=== PATIENT | male | born 1990 | race Caucasian/White ===

== ENCOUNTER 2023-08-18 10:50 | Inpatient (IN) | payer OTHER ==
[2023-08-18 11:07] VITALS: BMI 29.9
[2023-08-18] MEDS ORDERED: SODIUM CHLORIDE 1,000 ML IV ONE (11:57)
[2023-08-18] MEDS ORDERED: ACETAMINOPHEN 1000 MG/100 ML BAG IVPB ONE (11:57)
[2023-08-18] MEDS ORDERED: FAMOTIDINE 20 MG/50 ML IVPB 20 MG in PREMIX 50 IVPB ONE (11:57)
[2023-08-18] MEDS ORDERED: ACETAMINOPHEN INJECTION 100 ML IVPB ONE (12:07)
[2023-08-18] MEDS ORDERED: FAMOTIDINE 20 MG/50 ML IVPB 20 MG/50 ML MG IVPB ONE (12:07)
[2023-08-18 12:35] LABS: BASO % 0.3 % (0-2.0); EOS % 0.7 % (0-4.5); HEMATOCRIT 39.9 % (35.4-49); HEMOGLOBIN 13.4 GM/dL (11.7-16.9); LYMPH % 14.3 % (8-40); MCH 27.8 pg (25.7-33.7); MCHC 33.7 g/dl (32.0-35.9); MEAN CELL VOLUME 82.5 fl (80-96); MEAN PLT VOLUME 7.6 fl (7.5-11.1); MONO % 7.8 % (3.8-10.2); NEUT % 76.9 % (42.8-82.8); PLATELET COUNT 318 10^3/uL (134-434); RBC 4.84 M/mm3 (4.00-5.60); RDW 13.7 % (11.9-15.9); WHITE BLOOD COUNT 8.3 K/mm3 (4.0-10.0)
[2023-08-18 12:51] LABS: POTASSIUM 3.8 mmol/L (3.5-5.1)
[2023-08-18 12:54] LABS: ALBUMIN 3.2 g/dl (3.4-5.0); BLOOD UREA NITROGEN 14.1 mg/dL (7-18); CALCIUM 8.9 mg/dL (8.5-10.1)
[2023-08-18 12:57] LABS: CREATININE 0.7 mg/dL (0.55-1.3)
[2023-08-18 12:59] LABS: TOT PROT 7.6 g/dl (6.4-8.2)
[2023-08-18 13:00] LABS: BILIRUBIN,TOTAL 0.8 mg/dL (0.2-1)
[2023-08-18 13:53] LABS: EPI CELLS 5 /uL (0-25.1); HYALINE CASTS 1 /uL (0-3.1); URINE APPEARANCE CLEAR; URINE BACTERIA 4 /uL (0-1359); URINE BILIRUBIN NEGATIVE (NEGATIVE); URINE COLOR DK YELLOW; URINE GLUCOSE (UA) NEGATIVE (NEGATIVE); URINE KETONE TRACE (NEGATIVE); URINE LEUK ESTERASE TRACE (NEGATIVE); URINE NITRITE NEGATIVE (NEGATIVE); URINE PROTEIN TRACE (NEGATIVE); URINE RBC 23 /uL (0-23.9); URINE UROBILINOGEN 0.2 mg/dL (0.2-1.0); URINE WBC 26 /uL (0-25.8)
[2023-08-18] MEDS ORDERED: PIPERACILLIN/TAZOB 4.5 GM 4.5 GM in DEXTROSE 5%-WATER 100 ML IVPB ONE (15:42)
[2023-08-18] MEDS ORDERED: PIPERACILLIN/TAZOB 4.5 GM 4.5 GM/100 ML BAG IVPB ONE (16:00)
[2023-08-18] MEDS ORDERED: morphine CARPU-JECT 4 MG/1 ML DISP.SYRIN IVPUSH ONE (16:03)
[2023-08-18 16:29] LABS: INR 1.45 (0.83-1.09); PROTHROMBIN TIME (PATIENT) 16.8 SEC (9.7-13.0)
[2023-08-18] MEDS ORDERED: morphine SULFATE 4 MG/ML VIAL IVPUSH PRN (18:02)
[2023-08-18] MEDS ORDERED: ACETAMINOPHEN 1000 MG/100 ML BAG IVPB PRN (18:03)
[2023-08-18] MEDS ORDERED: ONDANSETRON 4 MG/2 ML VIAL IVPUSH PRN (18:04)
[2023-08-18] MEDS: LACTATED RINGERS SOLUTION 1,000 ML IV SCH ×2 (18:48→22:24)
[2023-08-18] MEDS ORDERED: HEPARIN NA (PORCINE) 5,000 UNITS/ML 1ML VIAL SQ SCH (22:00)
[2023-08-19] MEDS: PIPERACILLIN/TAZOB 3.375 GM 3.375 GM in DEXTROSE 5%-WATER - 50 ML IVPB SCH ×4 (01:28→22:32)
[2023-08-19] MEDS ORDERED: ACETAMINOPHEN 1000 MG/100 ML BAG IVPB PRN (09:35)
[2023-08-19] MEDS ORDERED: LACTATED RINGERS SOLUTION 1000 ML INFUS.BAG IV ONE (09:45)
[2023-08-19] MEDS: LACTATED RINGERS SOLUTION 1,000 ML IV SCH ×2 (10:04→18:07)
[2023-08-19 11:15] LABS: BASO % 0.4 % (0-2.0); HEMATOCRIT 39.1 % (35.4-49); HEMOGLOBIN 12.8 GM/dL (11.7-16.9); LYMPH % 18.5 % (8-40); MCHC 32.9 g/dl (32.0-35.9); MEAN CELL VOLUME 82.3 fl (80-96); MEAN PLT VOLUME 7.7 fl (7.5-11.1); MONO % 7.4 % (3.8-10.2); NEUT % 71.7 % (42.8-82.8); PLATELET COUNT 273 10^3/uL (134-434); RBC 4.75 M/mm3 (4.00-5.60); RDW 13.8 % (11.9-15.9); WHITE BLOOD COUNT 7.6 K/mm3 (4.0-10.0)
[2023-08-19 11:17] LABS: POTASSIUM 4.2 mmol/L (3.5-5.1)
[2023-08-19 11:25] LABS: BLOOD UREA NITROGEN 6.7 mg/dL (7-18)
[2023-08-19 11:27] LABS: CALCIUM 8.1 mg/dL (8.5-10.1)
[2023-08-19 11:28] LABS: ALBUMIN 2.6 g/dl (3.4-5.0); MAGNESIUM 2.4 mg/dL (1.8-2.4); PHOSPHOROUS 4.2 mg/dL (2.5-4.9)
[2023-08-19 11:29] LABS: CREATININE 0.6 mg/dL (0.55-1.3)
[2023-08-19 11:30] LABS: BILIRUBIN,TOTAL 0.5 mg/dL (0.2-1); TOT PROT 6.3 g/dl (6.4-8.2)
[2023-08-20] MEDS: PIPERACILLIN/TAZOB 3.375 GM 3.375 GM in DEXTROSE 5%-WATER - 50 ML IVPB SCH ×2 (02:15→09:17)
[2023-08-20 09:27] LABS: INR 1.37 (0.83-1.09); PROTHROMBIN TIME (PATIENT) 15.8 SEC (9.7-13.0)
[2023-08-20] MEDS: morphine SULFATE 4 MG/ML VIAL IVPUSH PRN ×2 (09:38→13:13)
[2023-08-20 09:45] LABS: HEMOGLOBIN 12.8 GM/dL (11.7-16.9); MCH 27.7 pg (25.7-33.7); MEAN CELL VOLUME 83.9 fl (80-96); MEAN PLT VOLUME 7.6 fl (7.5-11.1); PLATELET COUNT 287 10^3/uL (134-434); RBC 4.64 M/mm3 (4.00-5.60); RDW 13.5 % (11.9-15.9); WHITE BLOOD COUNT 6.8 K/mm3 (4.0-10.0)
[2023-08-20 11:03] LABS: BLOOD UREA NITROGEN 6.5 mg/dL (7-18); CALCIUM 8.7 mg/dL (8.5-10.1); CREATININE 0.6 mg/dL (0.55-1.3); MAGNESIUM 2.3 mg/dL (1.8-2.4); PHOSPHOROUS 4.9 mg/dL (2.5-4.9); POTASSIUM 4.2 mmol/L (3.5-5.1)
[2023-08-20] MEDS: metroNIDAZOLE 250 MG TABLET PO SCH ×2 (14:45→21:25)
[2023-08-20] MEDS: ACETAMINOPHEN 1000 MG/100 ML BAG IVPB PRN ×2 (14:53→21:25)
[2023-08-21] MEDS: metroNIDAZOLE 250 MG TABLET PO SCH ×3 (05:40→22:00)
[2023-08-21] MEDS: ACETAMINOPHEN 1000 MG/100 ML BAG IVPB PRN (08:49)
[2023-08-21 11:55] LABS: HEMOGLOBIN 13.8 GM/dL (11.7-16.9); MCH 27.4 pg (25.7-33.7); MCHC 32.9 g/dl (32.0-35.9); MEAN CELL VOLUME 83.3 fl (80-96); MEAN PLT VOLUME 7.7 fl (7.5-11.1); PLATELET COUNT 315 10^3/uL (134-434); RBC 5.05 M/mm3 (4.00-5.60); WHITE BLOOD COUNT 12.4 K/mm3 (4.0-10.0)
[2023-08-21 13:35] LABS: BLOOD UREA NITROGEN 9.3 mg/dL (7-18); CALCIUM 7.6 mg/dL (8.5-10.1); CREATININE 0.8 mg/dL (0.55-1.3); MAGNESIUM 2.4 mg/dL (1.8-2.4); PHOSPHOROUS 3.9 mg/dL (2.5-4.9); POTASSIUM 3.7 mmol/L (3.5-5.1)
[2023-08-21] MEDS: morphine SULFATE 4 MG/ML VIAL IVPUSH PRN (15:24)
[2023-08-21] MEDS: PIPERACILLIN/TAZOB 4.5 GM 4.5 GM in DEXTROSE 5%-WATER 100 ML IVPB SCH (18:31)
[2023-08-22] MEDS: PIPERACILLIN/TAZOB 4.5 GM 4.5 GM in DEXTROSE 5%-WATER 100 ML IVPB SCH ×2 (01:18→09:29)
[2023-08-22] MEDS: metroNIDAZOLE 250 MG TABLET PO SCH ×2 (05:49→13:49)
[2023-08-22] MEDS: morphine SULFATE 4 MG/ML VIAL IVPUSH PRN (09:25)
[2023-08-22 10:25] LABS: BASO % 0.3 % (0-2.0); EOS % 1.4 % (0-4.5); HEMOGLOBIN 13.1 GM/dL (11.7-16.9); LYMPH % 11.5 % (8-40); MCH 27.8 pg (25.7-33.7); MCHC 33.6 g/dl (32.0-35.9); MEAN CELL VOLUME 82.7 fl (80-96); MEAN PLT VOLUME 7.5 fl (7.5-11.1); MONO % 4.4 % (3.8-10.2); NEUT % 82.4 % (42.8-82.8); PLATELET COUNT 291 10^3/uL (134-434); RBC 4.72 M/mm3 (4.00-5.60); RDW 14.2 % (11.9-15.9); WHITE BLOOD COUNT 7.9 K/mm3 (4.0-10.0)
[2023-08-22 12:37] LABS: BLOOD UREA NITROGEN 12.2 mg/dL (7-18); CALCIUM 8.6 mg/dL (8.5-10.1); CREATININE 0.8 mg/dL (0.55-1.3); MAGNESIUM 2.1 mg/dL (1.8-2.4); PHOSPHOROUS 3.6 mg/dL (2.5-4.9); POTASSIUM 3.6 mmol/L (3.5-5.1)
[2023-08-22] MEDS: PIPERACILLIN/TAZOB 3.375 GM 3.375 GM in DEXTROSE 5%-WATER - 50 ML IVPB SCH (17:01)
[2023-08-23] MEDS: PIPERACILLIN/TAZOB 3.375 GM 3.375 GM in DEXTROSE 5%-WATER - 50 ML IVPB SCH ×3 (01:04→17:07)
[2023-08-23 10:08] LABS: HEMATOCRIT 40.9 % (35.4-49); HEMOGLOBIN 13.8 GM/dL (11.7-16.9); MCH 27.8 pg (25.7-33.7); MCHC 33.7 g/dl (32.0-35.9); MEAN CELL VOLUME 82.4 fl (80-96); MEAN PLT VOLUME 7.4 fl (7.5-11.1); PLATELET COUNT 319 10^3/uL (134-434); RBC 4.96 M/mm3 (4.00-5.60); RDW 13.8 % (11.9-15.9); WHITE BLOOD COUNT 5.4 K/mm3 (4.0-10.0)
[2023-08-23 10:20] LABS: POTASSIUM 3.9 mmol/L (3.5-5.1)
[2023-08-23 10:30] LABS: CALCIUM 8.7 mg/dL (8.5-10.1)
[2023-08-23 10:31] LABS: BLOOD UREA NITROGEN 11.3 mg/dL (7-18)
[2023-08-23 10:34] LABS: CREATININE 0.8 mg/dL (0.55-1.3)
[2023-08-23] MEDS ORDERED: morphine SULFATE 4 MG/ML VIAL IVPUSH PRN (14:00)
[2023-08-24] MEDS: PIPERACILLIN/TAZOB 3.375 GM 3.375 GM in DEXTROSE 5%-WATER - 50 ML IVPB SCH ×2 (03:17→10:33)
[2023-08-24 10:21] LABS: HEMATOCRIT 40.6 % (35.4-49); HEMOGLOBIN 13.7 GM/dL (11.7-16.9); MCH 28.1 pg (25.7-33.7); MCHC 33.7 g/dl (32.0-35.9); MEAN CELL VOLUME 83.2 fl (80-96); MEAN PLT VOLUME 7.4 fl (7.5-11.1); PLATELET COUNT 343 10^3/uL (134-434); RBC 4.88 M/mm3 (4.00-5.60); RDW 13.6 % (11.9-15.9); WHITE BLOOD COUNT 5.2 K/mm3 (4.0-10.0)
[2023-08-24 10:42] LABS: POTASSIUM 4.1 mmol/L (3.5-5.1)
[2023-08-24 10:47] LABS: CALCIUM 8.7 mg/dL (8.5-10.1)
[2023-08-24 10:49] LABS: BLOOD UREA NITROGEN 11.4 mg/dL (7-18)
[2023-08-24 10:52] LABS: CREATININE 0.7 mg/dL (0.55-1.3)
[2023-08-24 15:03] VITALS: BP 100/55; PULSE 64; RESP 18; TEMP 98
== END 2023-08-24 16:31 | disposition home or self-care (01) | DRG 244 ==
LOC: JER 10:50 → JERBED 16:21 → J5S 19:02
PROVIDERS: ADMIT Internal Medicine
DX: K57.20 Diverticulitis of large intestine with perforation and abscess without bleeding (principal); E66.9 Obesity, unspecified; Z68.30 Body mass index [BMI] 30.0-30.9, adult; E78.5 Hyperlipidemia, unspecified
CPT/HCPCS: 36415; 71046-TC-FY; 74177-TC; 80048; 80053; 81003; 83605; 83690; 83735; 84100; 85025; 85027; 85610; 85730; 86140; 86850; 86900; 86901; 93005; 93010; 99285-25

== ENCOUNTER 2023-08-28 00:38 | Inpatient (IN) | payer OTHER ==
[2023-08-28] MEDS ORDERED: FAMOTIDINE 20 MG/50 ML IVPB 20 MG/50 ML MG IVPB ONE (02:00)
[2023-08-28] MEDS ORDERED: ACETAMINOPHEN INJECTION 100 ML IVPB ONE ×2 (02:00→18:21)
[2023-08-28] MEDS: ACETAMINOPHEN 1000 MG/100 ML BAG IVPB ONE (02:02)
[2023-08-28 02:09] LABS: BASO % 0.4 % (0-2.0); EOS % 1.7 % (0-4.5); HEMATOCRIT 42.5 % (35.4-49); HEMOGLOBIN 14.3 GM/dL (11.7-16.9); LYMPH % 12.2 % (8-40); MCH 27.5 pg (25.7-33.7); MCHC 33.7 g/dl (32.0-35.9); MEAN CELL VOLUME 81.7 fl (80-96); MEAN PLT VOLUME 7.5 fl (7.5-11.1); MONO % 5.5 % (3.8-10.2); NEUT % 80.2 % (42.8-82.8); PLATELET COUNT 287 10^3/uL (134-434); RDW 13.9 % (11.9-15.9); WHITE BLOOD COUNT 12.3 K/mm3 (4.0-10.0)
[2023-08-28 02:23] LABS: PH,URINE 5.5 (5.0-8.0); URINE APPEARANCE CLEAR; URINE BILIRUBIN NEGATIVE (NEGATIVE); URINE COLOR YELLOW; URINE GLUCOSE (UA) NEGATIVE (NEGATIVE); URINE KETONE NEGATIVE (NEGATIVE); URINE LEUK ESTERASE NEGATIVE (NEGATIVE); URINE NITRITE NEGATIVE (NEGATIVE); URINE PROTEIN TRACE (NEGATIVE); URINE UROBILINOGEN 0.2 mg/dL (0.2-1.0)
[2023-08-28 02:27] LABS: POTASSIUM 3.6 mmol/L (3.5-5.1)
[2023-08-28 02:30] LABS: BLOOD UREA NITROGEN 14.3 mg/dL (7-18)
[2023-08-28 02:33] LABS: CREATININE 0.7 mg/dL (0.55-1.3)
[2023-08-28 02:34] LABS: BILIRUBIN,TOTAL 0.5 mg/dL (0.2-1); TOT PROT 7.8 g/dl (6.4-8.2)
[2023-08-28 02:51] LABS: ALBUMIN 3.2 g/dl (3.4-5.0)
[2023-08-28] MEDS: SODIUM CHLORIDE 1,000 ML IV STA (02:58)
[2023-08-28] MEDS: FAMOTIDINE 20 MG/50 ML IVPB 20 MG/50 ML MG IVPB ONE (02:58)
[2023-08-28] MEDS ORDERED: PIPERACILLIN/TAZOB 3.375 GM 3.375 GM/50 ML BAG IVPB ONE ×3 (03:21→18:22)
[2023-08-28] MEDS: PIPERACILLIN/TAZOB 3.375 GM 3.375 GM in DEXTROSE 5%-WATER - 50 ML IVPB ONE (03:24)
[2023-08-28 07:30] LABS: INR 1.34 (0.83-1.09); PROTHROMBIN TIME (PATIENT) 15.5 SEC (9.7-13.0)
[2023-08-28 07:39] LABS: HEMATOCRIT 38.7 % (35.4-49); HEMOGLOBIN 12.9 GM/dL (11.7-16.9); MCH 27.5 pg (25.7-33.7); MCHC 33.3 g/dl (32.0-35.9); MEAN CELL VOLUME 82.6 fl (80-96); MEAN PLT VOLUME 7.9 fl (7.5-11.1); PLATELET COUNT 254 10^3/uL (134-434); RBC 4.68 M/mm3 (4.00-5.60); RDW 13.6 % (11.9-15.9); WHITE BLOOD COUNT 11.4 K/mm3 (4.0-10.0)
[2023-08-28 07:40] LABS: POTASSIUM 3.7 mmol/L (3.5-5.1)
[2023-08-28 07:42] LABS: BLOOD UREA NITROGEN 11.1 mg/dL (7-18); CALCIUM 8.2 mg/dL (8.5-10.1)
[2023-08-28 07:43] LABS: MAGNESIUM 2.1 mg/dL (1.8-2.4)
[2023-08-28 07:45] LABS: CREATININE 0.6 mg/dL (0.55-1.3)
[2023-08-28 07:47] LABS: BILIRUBIN,TOTAL 0.6 mg/dL (0.2-1)
[2023-08-28] MEDS: LACTATED RINGERS SOLUTION 1,000 ML/1,000 ML INFUS.BAG IV SCH (08:18)
[2023-08-28] MEDS: PIPERACILLIN/TAZOB 3.375 GM 3.375 GM in DEXTROSE 5%-WATER - 50 ML IVPB SCH ×2 (09:00→18:35)
[2023-08-28] MEDS ORDERED: PIPERACILLIN/TAZOB 3.375 GM 3.375 GM in DEXTROSE 5%-WATER - 50 ML IVPB SCH (10:00)
[2023-08-28] MEDS: ACETAMINOPHEN 1000 MG/100 ML BAG IVPB PRN (18:36)
[2023-08-29] MEDS ORDERED: ACETAMINOPHEN INJECTION 100 ML IVPB ONE (06:53)
[2023-08-29] MEDS ORDERED: KETOROLAC TROMETHAMINE 30 MG/1 ML VIAL ONE (06:57)
[2023-08-29] MEDS ORDERED: PIPERACILLIN/TAZOB 3.375 GM 3.375 GM/50 ML BAG IVPB ONE ×2 (09:21→17:04)
[2023-08-30] MEDS ORDERED: PIPERACILLIN/TAZOB 3.375 GM 3.375 GM/50 ML BAG IVPB ONE (01:42)
[2023-08-30] MEDS ORDERED: ACETAMINOPHEN INJECTION 100 ML IVPB ONE (02:19)
[2023-08-30 07:00] LABS: BASO % 0.3 % (0-2.0); HEMATOCRIT 35.9 % (35.4-49); HEMOGLOBIN 11.9 GM/dL (11.7-16.9); LYMPH % 23.2 % (8-40); MCH 27.6 pg (25.7-33.7); MCHC 33.3 g/dl (32.0-35.9); MEAN CELL VOLUME 83.1 fl (80-96); MEAN PLT VOLUME 7.9 fl (7.5-11.1); MONO % 6.9 % (3.8-10.2); NEUT % 66.6 % (42.8-82.8); PLATELET COUNT 244 10^3/uL (134-434); RBC 4.32 M/mm3 (4.00-5.60); RDW 13.5 % (11.9-15.9); WHITE BLOOD COUNT 6.4 K/mm3 (4.0-10.0)
[2023-08-30 07:15] LABS: POTASSIUM 3.8 mmol/L (3.5-5.1)
[2023-08-30 07:18] LABS: BLOOD UREA NITROGEN 6.3 mg/dL (7-18); CALCIUM 8.4 mg/dL (8.5-10.1)
[2023-08-30 07:21] LABS: CREATININE 0.6 mg/dL (0.55-1.3)
[2023-08-30 13:41] VITALS: BMI 30.2
[2023-08-30] MEDS: ACETAMINOPHEN 325 MG TABLET (FP) PO PRN (22:29)
[2023-08-31] MEDS: ACETAMINOPHEN 325 MG TABLET (FP) PO PRN (01:47)
[2023-08-31 11:40] LABS: BASO % 0.2 % (0-2.0); HEMATOCRIT 37.7 % (35.4-49); HEMOGLOBIN 12.8 GM/dL (11.7-16.9); LYMPH % 9.5 % (8-40); MCH 27.8 pg (25.7-33.7); MEAN CELL VOLUME 81.8 fl (80-96); MEAN PLT VOLUME 7.8 fl (7.5-11.1); MONO % 6.7 % (3.8-10.2); NEUT % 82.6 % (42.8-82.8); PLATELET COUNT 275 10^3/uL (134-434); RBC 4.61 M/mm3 (4.00-5.60); RDW 14.3 % (11.9-15.9)
[2023-08-31 12:16] LABS: POTASSIUM 3.9 mmol/L (3.5-5.1)
[2023-08-31 12:22] LABS: CALCIUM 8.9 mg/dL (8.5-10.1)
[2023-08-31 12:24] LABS: BLOOD UREA NITROGEN 7.1 mg/dL (7-18)
[2023-08-31 12:26] LABS: CREATININE 0.6 mg/dL (0.55-1.3)
[2023-08-31] MEDS: ACETAMINOPHEN 1000 MG/100 ML BAG IVPB SCH (16:28)
[2023-09-01 09:09] LABS: BASO % 0.3 % (0-2.0); EOS % 2.3 % (0-4.5); HEMATOCRIT 37.8 % (35.4-49); HEMOGLOBIN 12.4 GM/dL (11.7-16.9); LYMPH % 14.5 % (8-40); MCH 27.1 pg (25.7-33.7); MCHC 32.7 g/dl (32.0-35.9); MEAN CELL VOLUME 82.7 fl (80-96); MEAN PLT VOLUME 7.8 fl (7.5-11.1); NEUT % 76.9 % (42.8-82.8); PLATELET COUNT 273 10^3/uL (134-434); RBC 4.57 M/mm3 (4.00-5.60); RDW 13.9 % (11.9-15.9); WHITE BLOOD COUNT 8.4 K/mm3 (4.0-10.0)
[2023-09-01 09:45] LABS: BLOOD UREA NITROGEN 12.1 mg/dL (7-18)
[2023-09-01 09:48] LABS: CREATININE 0.7 mg/dL (0.55-1.3)
[2023-09-01 09:54] LABS: CALCIUM 9.2 mg/dL (8.5-10.1)
[2023-09-01] MEDS: ENOXAPARIN NA (PORCINE) 40 MG/0.4 ML DISP.SYRIN SQ SCH (15:15)
[2023-09-01 22:26] LABS: PH,URINE 5.5 (5.0-8.0); URINE APPEARANCE CLEAR; URINE BILIRUBIN NEGATIVE (NEGATIVE); URINE COLOR DK YELLOW; URINE GLUCOSE (UA) NEGATIVE (NEGATIVE); URINE KETONE NEGATIVE (NEGATIVE); URINE LEUK ESTERASE NEGATIVE (NEGATIVE); URINE NITRITE NEGATIVE (NEGATIVE); URINE PROTEIN 30 (NEGATIVE); URINE UROBILINOGEN 0.2 mg/dL (0.2-1.0)
[2023-09-01 22:30] LABS: EPI CELLS 10.6 /uL (0-25.1); HYALINE CASTS 0.44 /uL (0-3.1); URINE BACTERIA 5.6 /uL (0-1359); URINE RBC 39.5 /uL (0-23.9); URINE WBC 22.5 /uL (0-25.8)
[2023-09-02] MEDS: DEXTROSE 5%-0.45% SALINE 1,000 ML IV SCH (14:16)
[2023-09-03 10:48] LABS: BASO % 0.2 % (0-2.0); EOS % 2.5 % (0-4.5); HEMATOCRIT 33.4 % (35.4-49); HEMOGLOBIN 11.5 GM/dL (11.7-16.9); LYMPH % 14.1 % (8-40); MCHC 34.3 g/dl (32.0-35.9); MEAN CELL VOLUME 81.8 fl (80-96); MEAN PLT VOLUME 8.1 fl (7.5-11.1); MONO % 6.9 % (3.8-10.2); NEUT % 76.3 % (42.8-82.8); PLATELET COUNT 290 10^3/uL (134-434); RBC 4.09 M/mm3 (4.00-5.60); RDW 14.1 % (11.9-15.9)
[2023-09-03 10:57] LABS: POTASSIUM 3.7 mmol/L (3.5-5.1)
[2023-09-03 11:11] LABS: ALBUMIN 2.4 g/dl (3.4-5.0); CALCIUM 8.3 mg/dL (8.5-10.1)
[2023-09-03 11:12] LABS: BLOOD UREA NITROGEN 14.6 mg/dL (7-18); MAGNESIUM 2.3 mg/dL (1.8-2.4)
[2023-09-03 11:14] LABS: BILIRUBIN,TOTAL 0.5 mg/dL (0.2-1); PHOSPHOROUS 4.4 mg/dL (2.5-4.9)
[2023-09-03 11:15] LABS: CREATININE 0.6 mg/dL (0.55-1.3); TOT PROT 6.6 g/dl (6.4-8.2)
[2023-09-04] MEDS: PEG 3350/NA SULF BICARB CL/KCL 4000 ML SOLN.RECON PO ONE (09:28)
[2023-09-04 10:09] LABS: BASO % 0.5 % (0-2.0); EOS % 3.9 % (0-4.5); HEMATOCRIT 34.4 % (35.4-49); HEMOGLOBIN 11.8 GM/dL (11.7-16.9); INR 1.47 (0.83-1.09); MCH 28.2 pg (25.7-33.7); MCHC 34.3 g/dl (32.0-35.9); MEAN CELL VOLUME 82.3 fl (80-96); MEAN PLT VOLUME 7.7 fl (7.5-11.1); NEUT % 63.6 % (42.8-82.8); PLATELET COUNT 276 10^3/uL (134-434); RBC 4.17 M/mm3 (4.00-5.60); RDW 14.2 % (11.9-15.9); WHITE BLOOD COUNT 4.8 K/mm3 (4.0-10.0)
[2023-09-04 10:25] LABS: POTASSIUM 3.7 mmol/L (3.5-5.1)
[2023-09-04 10:38] LABS: PHOSPHOROUS 4.9 mg/dL (2.5-4.9)
[2023-09-04 10:39] LABS: BLOOD UREA NITROGEN 8.3 mg/dL (7-18); CALCIUM 8.6 mg/dL (8.5-10.1); MAGNESIUM 2.1 mg/dL (1.8-2.4)
[2023-09-04 10:42] LABS: CREATININE 0.6 mg/dL (0.55-1.3)
[2023-09-04] MEDS: DEXTROSE 5%-0.45% SALINE 1,000 ML IV SCH (10:54)
[2023-09-04] MEDS: HEPARIN NA (PORCINE) 5,000 UNITS/ML 1ML VIAL SQ SCH (11:07)
[2023-09-04] MEDS: AMINO ACIDS 4.25%/D5W 1,000 ML IV SCH (12:05)
[2023-09-04] MEDS: metroNIDAZOLE 500 MG TABLET PO SCH (12:06)
[2023-09-04] MEDS: NEOMYCIN SO4 500 MG TABLET PO SCH (12:07)
[2023-09-04] MEDS: POLYETHYLENE GLYCOL 3350 255 GM BTL PO ONE (12:29)
[2023-09-04] MEDS: BISACODYL 5 MG TABLET.DR (FP) PO ONE (17:50)
[2023-09-04] MEDS: KETOROLAC TROMETHAMINE 30 MG/1 ML VIAL IVPUSH PRN (23:51)
[2023-09-05 11:42] LABS: HEMATOCRIT 37.2 % (35.4-49); HEMOGLOBIN 12.3 GM/dL (11.7-16.9); MCH 27.4 pg (25.7-33.7); MCHC 33.2 g/dl (32.0-35.9); MEAN CELL VOLUME 82.5 fl (80-96); MEAN PLT VOLUME 7.7 fl (7.5-11.1); PLATELET COUNT 321 10^3/uL (134-434); POTASSIUM 3.8 mmol/L (3.5-5.1); RBC 4.51 M/mm3 (4.00-5.60); RDW 14.2 % (11.9-15.9); WHITE BLOOD COUNT 8.6 K/mm3 (4.0-10.0)
[2023-09-05 11:46] LABS: ALBUMIN 2.7 g/dl (3.4-5.0); BLOOD UREA NITROGEN 10.1 mg/dL (7-18); CALCIUM 8.9 mg/dL (8.5-10.1)
[2023-09-05 11:49] LABS: CREATININE 0.6 mg/dL (0.55-1.3)
[2023-09-05 11:51] LABS: BILIRUBIN,TOTAL 0.6 mg/dL (0.2-1); TOT PROT 7.2 g/dl (6.4-8.2)
[2023-09-05] MEDS ORDERED: BUPIVACAINE HCL/PF 0.25% (2.5MG/ML) 10 ML VIAL ONE (14:11)
[2023-09-05] MEDS ORDERED: HEPARIN NA (PORCINE) 5,000 UNITS/ML 1ML VIAL ONE (14:11)
[2023-09-05] MEDS ORDERED: INDOCYANINE GREEN 25 MG/10 ML VIAL IVPUSH ONE (15:17)
[2023-09-05] MEDS ORDERED: PROPOFOL 20 ML ONE ×2 (15:34→16:59)
[2023-09-05] MEDS ORDERED: MIDAZOLAM HCL 2 MG/2 ML SINGLE DOSE VIAL ONE (15:34)
[2023-09-05] MEDS ORDERED: ROCURONIUM BROMIDE 50 MG/5 ML SYRINGE ONE ×3 (15:34→17:15)
[2023-09-05] MEDS ORDERED: HYDROmorphone HCl 2 MG/ML VIAL ONE (16:21)
[2023-09-05] MEDS: cefOXitin SODIUM 1 GM VIAL (RESTRICTED TO ID) IVPB ONE (16:26)
[2023-09-05] MEDS ORDERED: ONDANSETRON 4 MG/2 ML VIAL ONE (17:01)
[2023-09-05] MEDS ORDERED: DEXAMETHASONE SOD PHOSPHATE 4 MG/1 ML VIAL ONE (17:01)
[2023-09-05] MEDS ORDERED: KETOROLAC TROMETHAMINE 30 MG/1 ML VIAL ONE (17:01)
[2023-09-05] MEDS: BUPIVACAINE HCL/PF 2.5 MG/ML - 30 ML VIAL IJ ONE (17:15)
[2023-09-05] MEDS ORDERED: SUGAMMADEX SODIUM 200 MG/2 ML VIAL ONE (17:46)
[2023-09-05] MEDS: BUPIVACAINE HCL/PF 0.25% (2.5MG/ML) 10 ML VIAL IJ ONE (18:27)
[2023-09-05] MEDS ORDERED: ONDANSETRON 4 MG/2 ML VIAL IVPUSH PRN (21:27)
[2023-09-05] MEDS ORDERED: oxyCODONE HCL 5 MG TABLET PO PRN (21:36)
[2023-09-05] MEDS ORDERED: HYDROmorphone HCl 2 MG/ML VIAL IVPB PRN (21:36)
[2023-09-05] MEDS ORDERED: HYDROmorphone *PCA* 10MG/50ML DISP.SYRIN ONE (21:52)
[2023-09-05] MEDS: LACTATED RINGERS SOLUTION 1,000 ML IV SCH (22:00)
[2023-09-05] MEDS ORDERED: ACETAMINOPHEN 1000 MG/100 ML BAG IVPB SCH (22:00)
[2023-09-05] MEDS: HYDROmorphone *PCA* 10MG/50ML DISP.SYRIN PCA SCH (22:03)
[2023-09-06] MEDS: DEXTROSE 5%-0.45% SALINE 1,000 ML IV SCH ×2 (00:21→08:58)
[2023-09-06] MEDS: PIPERACILLIN/TAZOB 3.375 GM 3.375 GM in DEXTROSE 5%-WATER - 50 ML IVPB SCH (02:25)
[2023-09-06] MEDS: ACETAMINOPHEN 1000 MG/100 ML BAG IVPB SCH (04:50)
[2023-09-06] MEDS: ARTIFICIAL TEARS OPHTHALMIC DROPS OU ONE (06:45)
[2023-09-06] MEDS ORDERED: ONDANSETRON 4 MG/2 ML VIAL IVPUSH PRN (08:37)
[2023-09-06] MEDS: IBUPROFEN 800 MG/8 ML IJ IVPB PRN (08:47)
[2023-09-06] MEDS: AMINO ACIDS 4.25%/D5W 1,000 ML IV SCH (08:52)
[2023-09-06] MEDS: HEPARIN NA (PORCINE) 5,000 UNITS/ML 1ML VIAL SQ SCH (09:35)
[2023-09-06] MEDS: PANTOPRAZOLE SODIUM 40 MG VIAL IVPUSH SCH (09:35)
[2023-09-06 09:43] LABS: BASO % 0.1 % (0-2.0); HEMATOCRIT 33.1 % (35.4-49); LYMPH % 6.6 % (8-40); MCH 27.4 pg (25.7-33.7); MCHC 33.2 g/dl (32.0-35.9); MEAN CELL VOLUME 82.4 fl (80-96); MEAN PLT VOLUME 7.5 fl (7.5-11.1); MONO % 6.5 % (3.8-10.2); NEUT % 86.8 % (42.8-82.8); PLATELET COUNT 274 10^3/uL (134-434); RBC 4.02 M/mm3 (4.00-5.60); RDW 14.1 % (11.9-15.9); WHITE BLOOD COUNT 9.6 K/mm3 (4.0-10.0)
[2023-09-06 10:02] LABS: POTASSIUM 4.2 mmol/L (3.5-5.1)
[2023-09-06 10:12] LABS: CALCIUM 8.4 mg/dL (8.5-10.1)
[2023-09-06] MEDS: IBUPROFEN 800 MG/8 ML IJ IVPB SCH (10:12)
[2023-09-06 10:13] LABS: BLOOD UREA NITROGEN 6.9 mg/dL (7-18); MAGNESIUM 1.8 mg/dL (1.8-2.4)
[2023-09-06 10:16] LABS: CREATININE 0.5 mg/dL (0.55-1.3); PHOSPHOROUS 3.7 mg/dL (2.5-4.9)
[2023-09-07] MEDS: KETOROLAC TROMETHAMINE 15 MG/ML VIAL IM ONE (06:31)
[2023-09-07 08:51] LABS: BASO % 0.3 % (0-2.0); EOS % 1.7 % (0-4.5); HEMATOCRIT 26.3 % (35.4-49); HEMOGLOBIN 8.6 GM/dL (11.7-16.9); LYMPH % 17.2 % (8-40); MCH 27.7 pg (25.7-33.7); MCHC 32.7 g/dl (32.0-35.9); MEAN CELL VOLUME 84.8 fl (80-96); MEAN PLT VOLUME 7.6 fl (7.5-11.1); MONO % 7.4 % (3.8-10.2); NEUT % 73.4 % (42.8-82.8); PLATELET COUNT 198 10^3/uL (134-434); RBC 3.11 M/mm3 (4.00-5.60); RDW 14.6 % (11.9-15.9); WHITE BLOOD COUNT 5.6 K/mm3 (4.0-10.0)
[2023-09-07 09:16] LABS: POTASSIUM 3.2 mmol/L (3.5-5.1)
[2023-09-07 09:32] LABS: CALCIUM 7.4 mg/dL (8.5-10.1)
[2023-09-07 09:33] LABS: BLOOD UREA NITROGEN 5.8 mg/dL (7-18); MAGNESIUM 1.8 mg/dL (1.8-2.4)
[2023-09-07] MEDS: morphine SULFATE 4 MG/ML VIAL IVPUSH ONE (10:00)
[2023-09-07 10:29] LABS: CREATININE 0.6 mg/dL (0.55-1.3); PHOSPHOROUS 2.5 mg/dL (2.5-4.9)
[2023-09-07] MEDS: KCL 10 MEQ IVPB 10 MEQ/100 ML INFUS.BAG IVPB SCH (12:53)
[2023-09-07] MEDS: DEXTROSE 5%-0.45% SALINE 1,000 ML IV SCH (12:54)
[2023-09-07 15:17] LABS: HEMATOCRIT 29.9 % (35.4-49); MCH 27.4 pg (25.7-33.7); MCHC 33.4 g/dl (32.0-35.9); MEAN CELL VOLUME 82.2 fl (80-96); MEAN PLT VOLUME 7.2 fl (7.5-11.1); PLATELET COUNT 244 10^3/uL (134-434); RBC 3.64 M/mm3 (4.00-5.60); RDW 14.4 % (11.9-15.9)
[2023-09-07 15:33] LABS: POTASSIUM 3.8 mmol/L (3.5-5.1)
[2023-09-07 15:35] LABS: CALCIUM 7.9 mg/dL (8.5-10.1)
[2023-09-07 15:36] LABS: BLOOD UREA NITROGEN 6.9 mg/dL (7-18)
[2023-09-07 15:39] LABS: CREATININE 0.5 mg/dL (0.55-1.3)
[2023-09-08] MEDS: KETOROLAC TROMETHAMINE 30 MG/1 ML VIAL IM SCH (09:33)
[2023-09-08] MEDS: MULTIVITAMINS (DAILY MVI) TABLET (FP) PO SCH (09:35)
[2023-09-08 10:16] LABS: BASO % 0.5 % (0-2.0); EOS % 2.8 % (0-4.5); HEMATOCRIT 34.8 % (35.4-49); HEMOGLOBIN 11.7 GM/dL (11.7-16.9); LYMPH % 22.5 % (8-40); MCH 27.7 pg (25.7-33.7); MCHC 33.6 g/dl (32.0-35.9); MEAN CELL VOLUME 82.4 fl (80-96); MEAN PLT VOLUME 7.5 fl (7.5-11.1); MONO % 6.4 % (3.8-10.2); NEUT % 67.8 % (42.8-82.8); PLATELET COUNT 315 10^3/uL (134-434); RBC 4.22 M/mm3 (4.00-5.60); RDW 14.3 % (11.9-15.9); WHITE BLOOD COUNT 6.5 K/mm3 (4.0-10.0)
[2023-09-08 10:28] LABS: POTASSIUM 3.9 mmol/L (3.5-5.1)
[2023-09-08 10:36] LABS: CALCIUM 8.7 mg/dL (8.5-10.1)
[2023-09-08 10:40] LABS: CREATININE 0.5 mg/dL (0.55-1.3); PHOSPHOROUS 3.9 mg/dL (2.5-4.9)
[2023-09-08] MEDS ORDERED: oxyCODONE HCL 5 MG TABLET PO PRN (17:25)
[2023-09-08] MEDS: DEXTROSE 5%-0.45% SALINE 1,000 ML IV SCH (18:02)
[2023-09-08] MEDS: AMINO ACIDS 4.25%/D5W 1,000 ML IV SCH (18:03)
[2023-09-08] MEDS: oxyCODONE HCL 5 MG TABLET PO PRN (20:44)
[2023-09-08] MEDS: ACETAMINOPHEN 500 MG TABLET (FP) PO SCH (22:12)
[2023-09-09 08:17] LABS: BASO % 0.4 % (0-2.0); EOS % 4.8 % (0-4.5); HEMATOCRIT 32.1 % (35.4-49); LYMPH % 21.1 % (8-40); MCH 28.1 pg (25.7-33.7); MCHC 34.3 g/dl (32.0-35.9); MEAN PLT VOLUME 7.2 fl (7.5-11.1); MONO % 8.3 % (3.8-10.2); NEUT % 65.4 % (42.8-82.8); PLATELET COUNT 311 10^3/uL (134-434); RBC 3.92 M/mm3 (4.00-5.60); RDW 14.1 % (11.9-15.9); WHITE BLOOD COUNT 5.1 K/mm3 (4.0-10.0)
[2023-09-09 08:37] LABS: POTASSIUM 3.6 mmol/L (3.5-5.1)
[2023-09-09 08:44] LABS: CALCIUM 8.6 mg/dL (8.5-10.1)
[2023-09-09 08:48] LABS: CREATININE 0.6 mg/dL (0.55-1.3); PHOSPHOROUS 4.3 mg/dL (2.5-4.9)
[2023-09-09] MEDS: ENOXAPARIN NA (PORCINE) 40 MG/0.4 ML DISP.SYRIN SQ SCH (09:43)
[2023-09-09 10:30] VITALS: RESP 18
[2023-09-10 09:41] LABS: BASO % 0.5 % (0-2.0); EOS % 6.3 % (0-4.5); HEMATOCRIT 33.6 % (35.4-49); HEMOGLOBIN 11.2 GM/dL (11.7-16.9); LYMPH % 21.3 % (8-40); MCH 27.1 pg (25.7-33.7); MCHC 33.3 g/dl (32.0-35.9); MEAN CELL VOLUME 81.5 fl (80-96); MEAN PLT VOLUME 7.3 fl (7.5-11.1); MONO % 8.6 % (3.8-10.2); NEUT % 63.3 % (42.8-82.8); PLATELET COUNT 293 10^3/uL (134-434); RBC 4.13 M/mm3 (4.00-5.60); RDW 14.4 % (11.9-15.9); WHITE BLOOD COUNT 5.5 K/mm3 (4.0-10.0)
[2023-09-10 10:03] LABS: POTASSIUM 3.6 mmol/L (3.5-5.1)
[2023-09-10 10:27] LABS: BLOOD UREA NITROGEN 15.6 mg/dL (7-18)
[2023-09-10 10:30] LABS: CREATININE 0.5 mg/dL (0.55-1.3); PHOSPHOROUS 4.4 mg/dL (2.5-4.9)
[2023-09-10 10:32] LABS: CALCIUM 8.6 mg/dL (8.5-10.1); MAGNESIUM 2.1 mg/dL (1.8-2.4)
[2023-09-10] MEDS: AMINO ACIDS/PROTEIN HYDROLYS 30 ML LIQUID.PKT PO SCH (17:43)
[2023-09-11] MEDS: IBUPROFEN 600 MG TABLET (FP) PO PRN (05:27)
[2023-09-11 09:37] LABS: BASO % 0.5 % (0-2.0); EOS % 5.6 % (0-4.5); HEMATOCRIT 33.8 % (35.4-49); HEMOGLOBIN 11.7 GM/dL (11.7-16.9); LYMPH % 17.9 % (8-40); MCHC 34.6 g/dl (32.0-35.9); MEAN CELL VOLUME 80.9 fl (80-96); MEAN PLT VOLUME 7.4 fl (7.5-11.1); MONO % 8.4 % (3.8-10.2); NEUT % 67.6 % (42.8-82.8); PLATELET COUNT 273 10^3/uL (134-434); RBC 4.18 M/mm3 (4.00-5.60); RDW 14.3 % (11.9-15.9); WHITE BLOOD COUNT 6.3 K/mm3 (4.0-10.0)
[2023-09-11 10:07] LABS: MAGNESIUM 2.3 mg/dL (1.8-2.4)
[2023-09-12 09:10] LABS: BASO % 0.5 % (0-2.0); EOS % 7.3 % (0-4.5); HEMATOCRIT 36.1 % (35.4-49); HEMOGLOBIN 12.7 GM/dL (11.7-16.9); MCH 28.6 pg (25.7-33.7); MCHC 35.1 g/dl (32.0-35.9); MEAN CELL VOLUME 81.5 fl (80-96); MEAN PLT VOLUME 7.6 fl (7.5-11.1); MONO % 6.8 % (3.8-10.2); NEUT % 59.4 % (42.8-82.8); PLATELET COUNT 320 10^3/uL (134-434); RBC 4.43 M/mm3 (4.00-5.60); RDW 14.4 % (11.9-15.9); WHITE BLOOD COUNT 6.1 K/mm3 (4.0-10.0)
[2023-09-12 09:48] LABS: MAGNESIUM 2.2 mg/dL (1.8-2.4)
[2023-09-12 09:51] LABS: PHOSPHOROUS 5.1 mg/dL (2.5-4.9)
[2023-09-13 09:16] LABS: BASO % 0.4 % (0-2.0); HEMATOCRIT 34.8 % (35.4-49); HEMOGLOBIN 12.2 GM/dL (11.7-16.9); LYMPH % 23.5 % (8-40); MCH 28.4 pg (25.7-33.7); MCHC 34.9 g/dl (32.0-35.9); MEAN CELL VOLUME 81.3 fl (80-96); MEAN PLT VOLUME 7.7 fl (7.5-11.1); MONO % 6.3 % (3.8-10.2); NEUT % 60.8 % (42.8-82.8); PLATELET COUNT 268 10^3/uL (134-434); RBC 4.28 M/mm3 (4.00-5.60); RDW 14.8 % (11.9-15.9); WHITE BLOOD COUNT 5.9 K/mm3 (4.0-10.0)
[2023-09-13 09:45] LABS: MAGNESIUM 2.3 mg/dL (1.8-2.4)
[2023-09-13 09:49] LABS: PHOSPHOROUS 4.8 mg/dL (2.5-4.9)
[2023-09-13] MEDS ORDERED: oxyCODONE HCL 5 MG TABLET PO PRN (10:47)
[2023-09-13 10:50] VITALS: BP 110/63; PULSE 86; TEMP 98.2
[2023-09-13] MEDS: ACETAMINOPHEN 500 MG TABLET (FP) PO PRN (10:53)
[2023-09-13] MEDS ORDERED: PSYLLIUM 5.85 GM PACKET PO SCH (14:00)
== END 2023-09-13 12:23 | disposition home health service (06) | DRG 221 ==
LOC: JER 00:38 → JERBED 03:16 → J5S 08-30 09:12 → J2C 09-05 15:46 → J8W 09-06 00:07
PROVIDERS: ADMIT Internal Medicine; ATTEND Nurse Practitioner Acute Care
PROC: 0DBN0ZZ Excision of Sigmoid Colon, Open Approach (ICD-10-PCS; 2023-09-05)
PROC: 0DTJ0ZZ Resection of Appendix, Open Approach (ICD-10-PCS; 2023-09-05)
PROC: 0D1B0Z4 Bypass Ileum to Cutaneous, Open Approach (ICD-10-PCS; 2023-09-05)
PROC: 0DNW4ZZ Release Peritoneum, Percutaneous Endoscopic Approach (ICD-10-PCS; 2023-09-05)
PROC: 8E0W8CZ Robotic Assisted Procedure of Trunk Region, Via Natural or Artificial Opening Endoscopic (ICD-10-PCS; 2023-09-05)
PROC: 0TJB8ZZ Inspection of Bladder, Via Natural or Artificial Opening Endoscopic (ICD-10-PCS; principal; 2023-09-05 17:15)
PROC: 0T9880Z Drainage of Bilateral Ureters with Drainage Device, Via Natural or Artificial Opening Endoscopic (ICD-10-PCS; 2023-09-05 17:15)
DX: K57.20 Diverticulitis of large intestine with perforation and abscess without bleeding (principal); N32.1 Vesicointestinal fistula; H54.40 Blindness, one eye, unspecified eye; D72.829 Elevated white blood cell count, unspecified; E78.5 Hyperlipidemia, unspecified; K66.0 Peritoneal adhesions (postprocedural) (postinfection); R63.0 Anorexia; Z53.31 Laparoscopic surgical procedure converted to open procedure; K80.20 Calculus of gallbladder without cholecystitis without obstruction; Z68.30 Body mass index [BMI] 30.0-30.9, adult
CPT/HCPCS: 36415; 74177-TC; 80048; 80053; 81003; 83735; 84100; 84478; 85025; 85027; 85610; 86140; 86850; 86900; 86901; 86922; 87086; 94010; 94760; 97116-GP; 97161-GP; 99285-25; J0131; J1644; P9058; Q9967

== ENCOUNTER 2023-12-04 04:20 | Inpatient (IN) | payer OTHER ==
[2023-11-30 12:30] VITALS: BMI 29.8
[2023-12-04] MEDS ORDERED: cefOXitin SODIUM 2 GM VIAL (RESTRICTED TO ID) IVPB ONE (10:00)
[2023-12-04] MEDS ORDERED: GABAPENTIN 300 MG CAPSULE ONE (10:24)
[2023-12-04] MEDS ORDERED: ACETAMINOPHEN 500 MG TABLET (FP) ONE (10:25)
[2023-12-04] MEDS: ACETAMINOPHEN 500 MG TABLET (FP) PO ONE (10:30)
[2023-12-04] MEDS: GABAPENTIN 300 MG CAPSULE PO ONE (10:30)
[2023-12-04] MEDS ORDERED: BUPIVACAINE HCL/PF 0.25% (2.5MG/ML) 10 ML VIAL ONE (11:06)
[2023-12-04] MEDS ORDERED: ROCURONIUM BROMIDE 50 MG/5 ML SYRINGE ONE ×2 (13:38→14:50)
[2023-12-04] MEDS ORDERED: MIDAZOLAM HCL 2 MG/2 ML SINGLE DOSE VIAL ONE (13:38)
[2023-12-04] MEDS ORDERED: FENTANYL CITRATE/PF 50 MCG/ML VIAL ONE ×5 (13:38→17:19)
[2023-12-04] MEDS ORDERED: PROPOFOL 20 ML ONE ×2 (13:38→14:43)
[2023-12-04] MEDS ORDERED: HYDROmorphone HCl 2 MG/ML VIAL ONE (14:03)
[2023-12-04] MEDS: cefOXitin SODIUM 2 GM VIAL (RESTRICTED TO ID) IVPB ONE (14:10)
[2023-12-04] MEDS ORDERED: NEOSTIGMINE METHYLSULFATE 0.5 MG/1 ML - 10 ML MDV ONE (14:37)
[2023-12-04] MEDS ORDERED: GLYCOPYRROLATE 0.2 MG/1 ML VIAL ONE (15:15)
[2023-12-04] MEDS ORDERED: ONDANSETRON 4 MG/2 ML VIAL ONE (15:15)
[2023-12-04] MEDS ORDERED: DEXAMETHASONE SOD PHOSPHATE 4 MG/1 ML VIAL ONE (15:15)
[2023-12-04] MEDS ORDERED: KETOROLAC TROMETHAMINE 30 MG/1 ML VIAL ONE (15:15)
[2023-12-04] MEDS ORDERED: HYDROmorphone HCl 2 MG/ML VIAL IVPB PRN (15:41)
[2023-12-04] MEDS: BUPIVACAINE HCL/PF 0.25% (2.5MG/ML) 10 ML VIAL IJ ONE (15:48)
[2023-12-04] MEDS ORDERED: ONDANSETRON 4 MG/2 ML VIAL IVPUSH PRN (16:31)
[2023-12-04] MEDS ORDERED: LACTATED RINGERS SOLUTION 1,000 ML IV SCH (16:45)
[2023-12-04] MEDS: LACTATED RINGERS SOLUTION 1,000 ML/1,000 ML INFUS.BAG IV SCH (16:46)
[2023-12-04] MEDS: ACETAMINOPHEN INJECTION 100 ML IVPB ONE (18:00)
[2023-12-04] MEDS: ACETAMINOPHEN 1000 MG/100 ML BAG IVPB SCH (18:00)
[2023-12-04] MEDS ORDERED: LORATADINE 10 MG TABLET PO SCH (18:00)
[2023-12-04] MEDS: CEFOXITIN SODIUM 2 GM in DEXTROSE 5%-WATER - 100 ML IVPB ONE (18:39)
[2023-12-04] MEDS: CEFAZOLIN SODIUM 2 GM in DEXTROSE 5%-WATER 100 ML IVPB SCH (21:06)
[2023-12-04] MEDS: oxyCODONE HCL 5 MG TABLET PO PRN (21:13)
[2023-12-05 08:37] LABS: BASO % 0.1 % (0-2.0); HEMATOCRIT 39.2 % (35.4-49); HEMOGLOBIN 13.4 GM/dL (11.7-16.9); LYMPH % 9.8 % (8-40); MCH 27.8 pg (25.7-33.7); MCHC 34.1 g/dl (32.0-35.9); MEAN CELL VOLUME 81.4 fl (80-96); MEAN PLT VOLUME 8.5 fl (7.5-11.1); MONO % 5.9 % (3.8-10.2); NEUT % 84.2 % (42.8-82.8); PLATELET COUNT 189 10^3/uL (134-434); RBC 4.82 M/mm3 (4.00-5.60); WHITE BLOOD COUNT 10.1 K/mm3 (4.0-10.0)
[2023-12-05 08:42] LABS: POTASSIUM 3.8 mmol/L (3.5-5.1)
[2023-12-05 08:50] LABS: CALCIUM 8.8 mg/dL (8.5-10.1)
[2023-12-05 08:51] LABS: BLOOD UREA NITROGEN 13.8 mg/dL (7-18); MAGNESIUM 2.1 mg/dL (1.8-2.4)
[2023-12-05 08:54] LABS: CREATININE 0.7 mg/dL (0.55-1.3); PHOSPHOROUS 5.5 mg/dL (2.5-4.9)
[2023-12-05] MEDS: ACETAMINOPHEN 325 MG TABLET (FP) PO SCH (18:12)
[2023-12-06 09:52] LABS: BASO % 0.1 % (0-2.0); EOS % 1.4 % (0-4.5); HEMATOCRIT 39.7 % (35.4-49); HEMOGLOBIN 13.1 GM/dL (11.7-16.9); MCH 27.6 pg (25.7-33.7); MCHC 33.1 g/dl (32.0-35.9); MEAN CELL VOLUME 83.5 fl (80-96); MEAN PLT VOLUME 8.5 fl (7.5-11.1); MONO % 7.9 % (3.8-10.2); NEUT % 64.6 % (42.8-82.8); PLATELET COUNT 163 10^3/uL (134-434); RBC 4.76 M/mm3 (4.00-5.60); RDW 14.1 % (11.9-15.9); WHITE BLOOD COUNT 7.3 K/mm3 (4.0-10.0)
[2023-12-06 10:06] LABS: POTASSIUM 3.8 mmol/L (3.5-5.1)
[2023-12-06 10:07] LABS: CALCIUM 8.8 mg/dL (8.5-10.1)
[2023-12-06 10:08] LABS: BLOOD UREA NITROGEN 9.8 mg/dL (7-18); MAGNESIUM 2.5 mg/dL (1.8-2.4)
[2023-12-06 10:11] LABS: CREATININE 0.6 mg/dL (0.55-1.3); PHOSPHOROUS 3.7 mg/dL (2.5-4.9)
[2023-12-07 05:53] VITALS: RESP 18
[2023-12-07 08:32] LABS: POTASSIUM 3.7 mmol/L (3.5-5.1)
[2023-12-07 08:34] LABS: BASO % 0.3 % (0-2.0); EOS % 2.7 % (0-4.5); HEMATOCRIT 41.4 % (35.4-49); HEMOGLOBIN 13.8 GM/dL (11.7-16.9); LYMPH % 20.7 % (8-40); MCH 27.6 pg (25.7-33.7); MCHC 33.4 g/dl (32.0-35.9); MEAN CELL VOLUME 82.8 fl (80-96); MEAN PLT VOLUME 8.1 fl (7.5-11.1); MONO % 7.9 % (3.8-10.2); NEUT % 68.4 % (42.8-82.8); PLATELET COUNT 170 10^3/uL (134-434); RBC 5.01 M/mm3 (4.00-5.60); RDW 13.8 % (11.9-15.9); WHITE BLOOD COUNT 6.8 K/mm3 (4.0-10.0)
[2023-12-07 08:43] LABS: CALCIUM 8.6 mg/dL (8.5-10.1)
[2023-12-07 08:44] LABS: ALBUMIN 3.3 g/dl (3.4-5.0); BLOOD UREA NITROGEN 12.3 mg/dL (7-18); MAGNESIUM 2.5 mg/dL (1.8-2.4)
[2023-12-07 08:47] LABS: CREATININE 0.6 mg/dL (0.55-1.3)
[2023-12-07 08:48] LABS: BILIRUBIN,TOTAL 1.2 mg/dL (0.2-1)
[2023-12-07 10:15] VITALS: BP 122/71; PULSE 98; TEMP 98.1
== END 2023-12-07 10:25 | disposition home or self-care (01) | DRG 223 ==
LOC: J2C 04:20 → J8W 18:19
PROVIDERS: ADMIT Surgery; ATTEND Nurse Practitioner Acute Care
PROC: 0DBB0ZZ Excision of Ileum, Open Approach (ICD-10-PCS; 2023-12-04)
PROC: 0DSB0ZZ Reposition Ileum, Open Approach (ICD-10-PCS; principal; 2023-12-04 14:00)
DX: Z43.2 Encounter for attention to ileostomy (principal); E78.5 Hyperlipidemia, unspecified; H54.40 Blindness, one eye, unspecified eye; Z98.890 Other specified postprocedural states
CPT/HCPCS: 36415; 80048; 80053; 83735; 84100; 85025; 86850; 86870; 86880; 86900; 86901; 86902; 88307-TC; 94760; J0131